=== PATIENT | female | born 2005 | race Caucasian/White ===

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

== ENCOUNTER 2024-04-09 21:17 | Emergency (ER) | payer MEDICAID ==
[~2024-04-09] VITALS: Ht 160 cm; Wt 75.4 kg
[~2024-04-09 21:17] MED LIST: ACET-2708 MT; CEPH500C2 MT; FERR236T3 PO
[2024-04-09 21:46] VITALS: O2SAT 97
[2024-04-09 22:39] LABS: CLARITY URINE CLEAR (CLEAR); COLOR URINE YELLOW (YELLOW); GLUCOSE URINE NEGATIVE (NEGATIVE); KETONES URINE TRACE (NEGATIVE); LEUKOCYTE ESTERASE URINE NEGATIVE (NEGATIVE); NITRITE URINE NEGATIVE (NEGATIVE); OCCULT BLOOD URINE NEGATIVE (NEGATIVE); PH URINE 5.5 (4.5-8.0); PROTEIN URINE NEGATIVE (NEGATIVE); SPECIFIC GRAVITY URINE 1.028 (1.005-1.030); UROBILINOGEN URINE 0.2 E.U./dL (0.2-1.0)
[2024-04-10 00:23] VITALS: BP 109/67; PULSE 76; RESP 16; TEMP 97.7
== END 2024-04-10 00:27 | disposition home or self-care (01) ==
LOC: ER 21:17
DX: R07.89 Other chest pain (principal); R06.02 Shortness of breath; E78.00 Pure hypercholesterolemia, unspecified
CPT/HCPCS: 71045; 81003; 93005; 99285